=== PATIENT | male | born 1975 | race Caucasian/White ===

== ENCOUNTER 2020-09-05 18:50 | Inpatient (IN) | payer OTHER ==
[~2020-09-05] VITALS: Ht 193 cm; Wt 111.4 kg
[2020-09-05 20:24] LABS: BASOPHILS ABSOLUTE AUTO 0.04 K/mm3 (0.00-0.23); BASOPHILS PERCENT AUTO 1 % (0-2); EOSINOPHILS ABSOLUTE AUTO 0.15 K/mm3 (0.00-0.68); EOSINOPHILS PERCENT AUTO 2 % (0-6); Hematocrit 54.7 % (37.0-53.0); Hemoglobin 17.8 g/dL (13.5-17.5); IMMATURE GRAN ABSOLUTE AUTO 0.02 K/mm3 (0.00-0.10); IMMATURE GRAN PERCENT AUTO 0 % (0-1); LYMPHOCYTES ABSOLUTE AUTO 5.11 K/mm3 (0.84-5.20); LYMPHOCYTES PERCENT AUTO 62 % (21-46); MONOCYTES ABSOLUTE AUTO 0.77 K/mm3 (0.16-1.47); MONOCYTES PERCENT AUTO 9 % (4-13); Mean Corpuscular HGB 28.8 pg (26.0-34.0); Mean Corpuscular HGB Conc 32.5 g/dL (31.5-36.5); Mean Corpuscular Volume 89 fL (80-100); Mean Platelet Volume 10.1 fL (9.1-12.4); NEUTROPHILS ABSOLUTE AUTO 2.13 K/mm3 (1.96-9.15); NEUTROPHILS PERCENT AUTO 26 % (41-73); Platelet Count 279 K/mm3 (150-400); RDW Coefficient Variation 12.4 % (11.7-14.2); RDW Standard Deviation 40.4 fL (35.1-46.3); Red Blood Cell Count 6.17 M/mm3 (4.30-5.90); White Blood Cell Count 8.22 K/mm3 (4.00-11.30)
[2020-09-05 20:38] LABS: PCO2 Arterial 39.4 mmHg (35-45); PO2 Arterial 61.5 mmHg (80-100); pH Blood Arterial 7.31 (7.35-7.45)
[2020-09-05 20:44] LABS: Alanine Aminotransfer (ALT/SGP 41 U/L (12-78); Albumin/Globulin Ratio 1.4 (0.8-1.8); Alk Phos 64 U/L (50-136); Anion Gap 12 mmol/L (6-16); Aspartate Aminotrans (AST/SGOT 30 U/L (12-37); Bilirubin, Total 0.6 mg/dL (0.1-1.0); Blood Urea Nitrogen 14 mg/dL (8-24); Bun/Creatinine Ratio 10.6 (12.0-20.0); CO2, Blood 21 mmol/L (21-32); Calcium, Blood 9.1 mg/dL (8.5-10.1); Chloride, Blood 106 mmol/L (98-108); Creatinine, Blood 1.32 mg/dL (0.60-1.20); Globulin, Blood 2.9 g/dL (2.2-4.0); Glomerular Filtration Rate >60 (60-); Glucose, Blood 143 mg/dL (70-99); Sodium, Blood 139 mmol/L (136-145); Total Protein, Blood 6.9 g/dL (6.4-8.2)
--- NOTE | 2020-09-05 22:00 | NUR ---
PT TO ICU 7 VIA [facility] WITH ED RN AND RT. PT ON VENTILATOR SET TO AC 16/550 PEEP 5 FIO2 35% WITH O2 SATURATIONS> 90%. MONITOR SHOWS SINUS RHYTHM WITH HR 70'S-80'S, BP STABLE WITH EPI GTT @ 2, PROPOFOL INFUSING FOR SEDATION, SEE FLOWSHEET FOR RATES AND TITRATIONS. OG PLACED, VERIFIED BY AUSCULTATION, NOTIFIED ANN MARIE GATICA, NO XRAY AT THIS TIME, ORDERS TO PLACE OG TO LOW INTERMITTENT SUCTION, INITIAL OUTPUT OF GREEN BILE, THEN RED TINGED OUTPUT. ANN MARIE GATICA CERTIFIED SHORTHAND REPORTER NOTIFIED, BEDSIDE GUAIAC POSITIVE, WILL RECHECK HGB IN THE AM. PADGETT IN PLACE DRAINING CLEAR YELLOW URINE. DURING INITIAL ASSESSMENT, PT BECAME AGITATED, PULLING AT RESTRAINTS, NOT REDIRECTABLE, NEW ORDER FOR 2MG VERSED Q2H PRN FOR AGITATION.
[2020-09-06 03:49] LABS: BASOPHILS ABSOLUTE AUTO 0.04 K/mm3 (0.00-0.23); BASOPHILS PERCENT AUTO 0 % (0-2); EOSINOPHILS PERCENT AUTO 0 % (0-6); Hematocrit 48.5 % (37.0-53.0); IMMATURE GRAN ABSOLUTE AUTO 0.07 K/mm3 (0.00-0.10); IMMATURE GRAN PERCENT AUTO 1 % (0-1); LYMPHOCYTES ABSOLUTE AUTO 0.98 K/mm3 (0.84-5.20); LYMPHOCYTES PERCENT AUTO 7 % (21-46); MONOCYTES ABSOLUTE AUTO 0.26 K/mm3 (0.16-1.47); MONOCYTES PERCENT AUTO 2 % (4-13); Mean Corpuscular HGB 29.3 pg (26.0-34.0); Mean Corpuscular Volume 89 fL (80-100); Mean Platelet Volume 9.6 fL (9.1-12.4); NEUTROPHILS ABSOLUTE AUTO 12.41 K/mm3 (1.96-9.15); NEUTROPHILS PERCENT AUTO 90 % (41-73); Platelet Count 229 K/mm3 (150-400); RDW Coefficient Variation 12.9 % (11.7-14.2); RDW Standard Deviation 41.5 fL (35.1-46.3); Red Blood Cell Count 5.46 M/mm3 (4.30-5.90); White Blood Cell Count 13.76 K/mm3 (4.00-11.30)
[2020-09-06 04:09] LABS: Anion Gap 13 mmol/L (6-16); Blood Urea Nitrogen 17 mg/dL (8-24); Bun/Creatinine Ratio 13.1 (12.0-20.0); CO2, Blood 19 mmol/L (21-32); Calcium, Blood 7.8 mg/dL (8.5-10.1); Chloride, Blood 106 mmol/L (98-108); Glomerular Filtration Rate >60 (60-); Glucose, Blood 303 mg/dL (70-99); Potassium, Blood 4.4 mmol/L (3.5-5.5); Sodium, Blood 138 mmol/L (136-145)
--- NOTE | 2020-09-06 06:31 | NUR ---
SHIFT SUMMARY PT REMAINS INTUBATED AND SEDATED, PT WAKING UP AND FOLLOWING COMMANDS, REQUIRING FREQUENT TITRATION WITH PROPOFOL, PRN VERSED AND FENTANYL FOR ADQUATE SEDATION AND COMFORT. PT DOES REPORT PAIN TO HIS THROAT AND COMMUNICATES DESIRE TO BE EXTUBATED. EDUCATED PT ON SWELLING R/T ANAPHYLAXIS AND NEED FOR CONTINUED INTUBATION, ASSURED PT HE WOULD BE RE-EVALUATED BY PROVIDER TODAY. EPI GTT INFUSING AT 3mcg/min TO MAINTAIN MAPS> 65, INFUSING TO LFA IV, BLOOD RETURN WITH EACH REASSESSMENT OF IV. OG REMAINS IN PLACE, VERY LITTLE OUTPUT. PADGETT REMAINS IN PLACE DRAINING CLEAR YELLOW URINE. SKIN IS MUCH IMPROVED, MINIMAL HIVES NOTED TO LEFT FOREARM ONLY.
--- NOTE | 2020-09-06 07:10 | NUR ---
PT RECEIVED FROM MAIKOL REILLY. PT ON VENTILATOR, AC 16/550/5/35%. EPINEPHRINE GTT GOING IN LEFT FOREARM, PROPOFOL AND MAINTENANCE FLUIDS GOING IN LEFT A/C, SITES BOTH GOOD, NO EVIDENCE OF INFILTRATION. PT'S SKIN WITHOUT ANY FURTHER EVIDENCE OF HIVES,VERIFIED WITH MAIKOL REILLY DURING REPORT. PT WITH GOOD URINE OUTPUT VIA PADGETT, CLEAR YELLOW. WRISTS RESTRAINED FOR PATIENT SAFETY.
--- NOTE | 2020-09-06 09:00 | NUR ---
IN TO SEE PATIENT, LEAK TEST PERFORMED, NO LEAK, NO CHANGE IN TIDAL VOLUMES. PICC LINE HAS BEEN PLACED BY MAIKOL YEE ALL LINES MOVED TO RIGHT UPPER ARM. BOTH LOCKS REMAIN IN LEFT ARM. BLOOD PRESSURE CONTINUES TO BE LABILE, TITRATING EPI NEEDED. CURRENTLY AT 5, WILL CONTINUE TO TITRATE.
--- NOTE | 2020-09-06 12:00 | NUR ---
PT REMAINS INTUBATED AND SEDATED. PT INTERMITTENTLY AGITATED. HE SITS UP IN THE BED AND GRIMACES WITH ORAL CARE AND POSITION CHANGES.PROPOFOL DRIP CONTINUES @ 35 MCG/KG/MIN. MED WITH VERSED AND FENTANYL SEDATION ADJUNCTS-SEE EMAR. EPI DRIP CONTINUES @ 4 MCG AND MAP TRENDING 70'S.OGT HAS RESIDUAL BROWN, RED DRAINAGE ON OGT, BUT NO DRAINAGE TO SUCTION CANNISTER TO LIS.
--- NOTE | 2020-09-06 17:25 | NUR ---
DRAIN SPONGE PLACED AROUND THE TRACH SITE, PT STATES FEELS FINE.
--- NOTE | 2020-09-06 17:48 | NUR ---
ASHLEY HAS BEEN CONTINUING ON THE VENTILATOR AC 16/550/5/35%. HE WAS MORE AWARE WHEN HIS WAS IN TO VISIT, WRITING NOTES AND TRYING TO "COMMUNICATE". HE IS MADE AWARE THAT IT IS NOT QUITE TIME TO REMOVE THE VENT HIS SWELLING IN HIS THROAT ISN'T GONE YET. HE IS MEDICATED WITH THE FENTANYL, VERSED, AND BENADRYL ADJUNCTS TO HIS PROPOFOL GTT. HE DID GET MOVED UP TO 45 MCG/KG/MIN AFTER TURN AND WHILE "VISITING" WITH . HE CONTINUES ON EPI GTT AT 4 MCG/MIN. HE CONTINUES WITH NO EVIDENCE OF HIVES, OG TUBE CONT ON LIS W/ NO RETURN TO THE BUCKET, JUST NOTED IN LINE OF THE BROWN/RED RETURN. PADGETT CONTINUES TO DRAIN CLEAR YELLOW TO GRAVITY. WILL REPORT TO NEXT SHIFT WHEN ABLE.
--- NOTE | 2020-09-06 21:33 | NUR ---
ASSUMPTION OF CARE PT INTUBATED AND SEDATED, AROUSES TO VERBAL STIMULI AND FOLLOWS DIRECTIONS, NODS HEAD "YES" TO PAIN, GRIMACES AND MILD AGITATION NOTED WITH NURSING CARE. PROPOFOL INFUSING FOR SEDATION (SEE FLOWSHEET FOR RATES AND TITRATIONS), VERSED AND FENTANYL PRN AVAILABLE FOR PAIN/AGITATION, SEE MAR FOR ADMINISTRATIONS. VENT SET TO AC 16/550 PEEP 5 FIO2 35%, MONITOR SHOWS SINUS RHYTHM WITH HR 80'S, EPI GTT INFUSING TO MAINTAIN MAPS> 65. NO REDNESS OR HIVES NOTED. OG IN PLACE TO LOW INTERMITTENT SUCTION, LITTLE OUTPUT NOTED, BOWEL TONES HYPOACTIVE. PADGETT IN PLACE DRAINING YELLOW URINE.
[2020-09-07 04:00] LABS: BASOPHILS ABSOLUTE AUTO 0.03 K/mm3 (0.00-0.23); BASOPHILS PERCENT AUTO 0 % (0-2); EOSINOPHILS PERCENT AUTO 0 % (0-6); Hematocrit 40.6 % (37.0-53.0); Hemoglobin 13.8 g/dL (13.5-17.5); IMMATURE GRAN ABSOLUTE AUTO 0.07 K/mm3 (0.00-0.10); IMMATURE GRAN PERCENT AUTO 0 % (0-1); LYMPHOCYTES ABSOLUTE AUTO 1.26 K/mm3 (0.84-5.20); LYMPHOCYTES PERCENT AUTO 8 % (21-46); MONOCYTES ABSOLUTE AUTO 1.27 K/mm3 (0.16-1.47); MONOCYTES PERCENT AUTO 8 % (4-13); Mean Corpuscular HGB 29.4 pg (26.0-34.0); Mean Corpuscular Volume 86 fL (80-100); Mean Platelet Volume 9.7 fL (9.1-12.4); NEUTROPHILS ABSOLUTE AUTO 13.33 K/mm3 (1.96-9.15); NEUTROPHILS PERCENT AUTO 84 % (41-73); Platelet Count 199 K/mm3 (150-400); RDW Coefficient Variation 12.9 % (11.7-14.2); RDW Standard Deviation 40.5 fL (35.1-46.3); White Blood Cell Count 15.96 K/mm3 (4.00-11.30)
[2020-09-07 04:22] LABS: Albumin, Blood 3.2 g/dL (3.4-5.0); Anion Gap 6 mmol/L (6-16); Blood Urea Nitrogen 17 mg/dL (8-24); Bun/Creatinine Ratio 12.1 (12.0-20.0); CO2, Blood 24 mmol/L (21-32); Calcium, Blood 8.9 mg/dL (8.5-10.1); Chloride, Blood 111 mmol/L (98-108); Glomerular Filtration Rate 58 (60-); Glucose, Blood 103 mg/dL (70-99); Phosphorus, Blood 1.3 mg/dL (2.5-4.9); Sodium, Blood 141 mmol/L (136-145)
--- NOTE | 2020-09-07 06:37 | NUR ---
SHIFT SUMMARY PT REMAINS INTUBATED AND SEDATED, AROUSES TO VERBAL STIMULI, FOLLOWS DIRECTIONS. VENT SET TO AC 16/550/5/30%, PT MEDICATED WITH PRN FENTANYL AND VERSED FOR INTERMITTENT PAIN AND AGITATION. MONITOR SHOWS SINUS RHYTHM WITH HR 70'S-80'S, BP STABLE, EPI GTT OF SINCE 0100. OG IN PLACE, NO OUTPUT THIS SHIFT. PADGETT IN PLACE WITH GOOD OUTPUT. CHEM BG'S TRENDING DOWN, NEW ORDER FOR HYPOGLYCEMIA PROTOCOL. AM LABS SHOWED LOW PHOS, SEE ORDER FOR 30mmol K-PHOS.
--- NOTE | 2020-09-07 07:48 | NUR ---
PT REMAINS INTUBATED, SEDATED, AND RESTRAINED. PT OPENS EYES TO VERBAL. PT APPEARS AGITATED WITH ORAL CARE AND REPOSITIONING. PROPOFOL DRIP @ 50 MCG/KG/MIN. MED WITH FENTANYL 100 MCG IVP X 1 SEDATION ADJUNCT-SEE EMAR. PT IS AFEBRILE. ECG SHOWS SR WITH RATE 60-70'S. MAP TRENDING IN THE 70'S-EPI DRIP REMAINS OFF. LUNGS CLEAR, BUT DIMINISHED IN THE BASES. SATS>90% ON FIO2 30% ETT TO VENT: AC 16, TV 550, PEEP 5, FIO2 30%. ETT SUCTION PRODUCTIVE OF A MODERATE AMOUNT OF THICK, GREEN SPUTUM. WBC COUNT ELEVATED THIS AM. CUFF LEAK TEST WITH LEAK AUSCULTATED EARLY THIS AM PER RT, NOEL, OGT TO LIS WITH SMALL AMOUNT OF BILIOUS DRAINAGE. PADGETT WITH ADEQUATE AMOUNT OF CLEAR, YELLOW URINE TO UROMETER.
--- NOTE | 2020-09-07 09:34 | NUR ---
PROPOFOL DRIP ON STANDYBY FOR SEDATION VACATION AND WEANING TRIAL-PER DR. JEAN.
--- NOTE | 2020-09-07 09:45 | NUR ---
PT AWAKE AND ALERT. FOLLOWING COMMANDS. DR. JEAN AT BEDSIDE AND VENT ON SPONTANEOUS. PT MAINTAINING SATS>90% PT SPOUSE HEATHER CONTACTED AND MADE AWARE THAT THE SEDATION VACATION AND WEANING TRIAL HAVE COMMENSED.
--- NOTE | 2020-09-07 10:00 | NUR ---
PT AGITATED. COUGHING AND PULLING ON RESTRAINTS. ABLE TO CONSOLE PT AND OVERALL TOLERATING WEANING TRIAL WELL.
--- NOTE | 2020-09-07 10:25 | NUR ---
PT SUCCUESSFULLY WEANED AND EXTUBATED. VOICE IS HOARSE, BUT PT ABLE TO COMMUNICATE NEEDS WELL. RESTRAINTS REMOVED. PT SPOUSE HEATHER CONTACTED AND UPDATED.
--- NOTE | 2020-09-07 11:23 | NUR ---
PT RESTING QUIETLY WHEN NOT DISTURBED. HE AWAKENS TO VOICE AND IS A&OX4. HE DENIES PAIN OR SOB. PT AWARE THAT HE MUST REMAIN NPO X MINIMUM OF 2 HOURS POST EXTUBATION. PT VERBALIZES BOTH UNDERSTANDING AND AGREEMENT WITH NPO STATUS. PT DENIES COMPLAINTS. SATS>90% ON 2 LITERS NASAL CANULA. PT HAS CALL LIGHT IN REACH AND WILL CALL FOR ASSISTANCE PRN. ATTEMPTED TO CONTACT PT SPOUSE TO UPDATE REGARDING EXTUBATION. MESSAGE LEFT FOR PT SPOUSE HEATHER.
--- NOTE | 2020-09-07 11:39 | NUR ---
PT REPORTED THAT HE HAD "HIVES AGAIN." NOTED SEVERAL HIVES TO LEFT WRIST AND ONE TO LEFT ANKLE. MED WITH BENADRYL 25 MG IVP X1. PT HAS MOIST, NONPRODUCTIVE COUGH. PT INSTRUCTED ON USE OF YANKEUR SUCTION. PT ABLE TO VERBALIZE AND DEMONSTRATE UNDERSTANDING.
--- NOTE | 2020-09-07 14:21 | NUR ---
PT SPOUSE IN FOR VISIT. UPDATED TO CURRENT STATUS AND PLAN OF CARE. PT STATES THAT THE HIVES AND ITCHING THAT HE HAD EARLIER HAS RESOLVED COMPLETELY.
--- NOTE | 2020-09-07 15:38 | NUR ---
PT REMAINS A&OX4. DENIES PAIN OR SOB. LUNGS SLIGHTLY COARSE, BUT CLEARED SOMEWHAT WITH COUGH. COUGH PRODUCTIVE OF A LARGE AMOUNT OF THICK, GREEN SPUTUM. ENCOURAGED C&DB. SATS>90% ON RA. PT FACE, CHEST, AND TORSO RED. SKIN WAS CLEAR ON LAST ASSESSMENT. MED WITH BENADRYL 25 MG IVPX1. PT OFFERED A BATH AND TO GET UP TO THE RECLINER, BUT PT REFUSING AT THIS TIME.
--- NOTE | 2020-09-07 18:22 | NUR ---
PT REMAINS A&0X4. NO NOTED SOB. SATS>90% ON RA. OCCASIONAL COUGH-PRODUCTIVE OF LARGE AMOUNT OF THICK, GREEN SPUTUM. PT TOLERATING REGULAR DIET WELL. HE ATE ONLY BITES OF DINNER TRAY PROVIDED. HE IS ON A KETO DIET AT HOME. HIS DID BRING HIM IN A MEDITERANEAN SALAD FROM THE [place]. HE ATE APROX. 50% OF THE SALAD. NO NOTED HIVES AT THIS TIME-PT WILL CALL IF ITCHING, HIVES, OR SOB.
--- NOTE | 2020-09-07 20:35 | NUR ---
INITIAL ASSESSMENT: PATIENT A/OX3. DENIES PAIN. DENIES DIFFICULTY BREATHING. DENIES THROAT SWELLING, ITCHING, HIVES, AND RED SKIN. CONTINUOUS PULSE OXIMETRY, SPO2 IN 90'S ON ROOM AIR. REPORTS COUGHING UP MOD AMT THICK GREEN SPUTUM. STATES HE ASPIRATED ON EMESIS IN ED. STATES HE DOES NOT HAVE TROUBLE CLEARING SPUTUM BUT YAUNKER IS AT BEDSIDE IF NEEDED. SINUS RHYTHM ON TELE. DENIES CHEST PAIN. MED STATUS WITH TELE. IS ABLE TO REPOSITION HIMSELF IN BED. STATES THAT HE WAS ABLE TO TOLERATE DINNER. PADGETT DRAINING, STATES HE WOULD NOT LIKE IT REMOVED AT THIS TIME, "MAYBE IN THE MORNING". HE LIVES WITH HIS HEATHER AND THEY HAVE 5 CHILDREN THAT LIVE WITH THEM, NORMALLY INDEPENDENT. DISCUSSED POC FOR SHIFT. WILL CONTINUE TO MONITOR.
--- NOTE | 2020-09-08 00:15 | NUR ---
UPDATE: PATIENT CONTINUES TO DENY PAIN. DENIES DIFFICULTY BREATHING. SPO2 IN 90'S ON RA. DENIES HIVES, ITCHING, AND RED SKIN. HE CAN REPOSITION HIMSELF IN BED. BED ALARM ON. CALL LIGHT IN REACH.
[2020-09-08 04:45] LABS: BASOPHILS ABSOLUTE AUTO 0.01 K/mm3 (0.00-0.23); BASOPHILS PERCENT AUTO 0 % (0-2); EOSINOPHILS ABSOLUTE AUTO 0.01 K/mm3 (0.00-0.68); EOSINOPHILS PERCENT AUTO 0 % (0-6); Hematocrit 41.8 % (37.0-53.0); Hemoglobin 13.4 g/dL (13.5-17.5); IMMATURE GRAN ABSOLUTE AUTO 0.04 K/mm3 (0.00-0.10); IMMATURE GRAN PERCENT AUTO 0 % (0-1); LYMPHOCYTES ABSOLUTE AUTO 2.02 K/mm3 (0.84-5.20); LYMPHOCYTES PERCENT AUTO 19 % (21-46); MONOCYTES PERCENT AUTO 7 % (4-13); Mean Corpuscular HGB 28.9 pg (26.0-34.0); Mean Corpuscular HGB Conc 32.1 g/dL (31.5-36.5); Mean Corpuscular Volume 90 fL (80-100); Mean Platelet Volume 9.9 fL (9.1-12.4); NEUTROPHILS ABSOLUTE AUTO 7.97 K/mm3 (1.96-9.15); NEUTROPHILS PERCENT AUTO 74 % (41-73); Platelet Count 145 K/mm3 (150-400); RDW Coefficient Variation 13.6 % (11.7-14.2); RDW Standard Deviation 44.9 fL (35.1-46.3); Red Blood Cell Count 4.63 M/mm3 (4.30-5.90); White Blood Cell Count 10.75 K/mm3 (4.00-11.30)
[2020-09-08 05:07] LABS: Alanine Aminotransfer (ALT/SGP 24 U/L (12-78); Albumin, Blood 3.2 g/dL (3.4-5.0); Albumin/Globulin Ratio 1.1 (0.8-1.8); Alk Phos 46 U/L (50-136); Anion Gap 4 mmol/L (6-16); Aspartate Aminotrans (AST/SGOT 12 U/L (12-37); Bilirubin, Total 0.7 mg/dL (0.1-1.0); Blood Urea Nitrogen 21 mg/dL (8-24); Bun/Creatinine Ratio 15.7 (12.0-20.0); CO2, Blood 27 mmol/L (21-32); Calcium, Blood 9.1 mg/dL (8.5-10.1); Chloride, Blood 115 mmol/L (98-108); Creatinine, Blood 1.34 mg/dL (0.60-1.20); Globulin, Blood 2.9 g/dL (2.2-4.0); Glomerular Filtration Rate >60 (60-); Glucose, Blood 97 mg/dL (70-99); Magnesium, Blood 2.2 mg/dL (1.6-2.4); Phosphorus, Blood 3.6 mg/dL (2.5-4.9); Potassium, Blood 4.7 mmol/L (3.5-5.5); Sodium, Blood 146 mmol/L (136-145); Total Protein, Blood 6.1 g/dL (6.4-8.2)
--- NOTE | 2020-09-08 07:00 | NUR ---
DR. JEAN AT BEDSIDE. DISCUSSED POC. AWARE SODIUM 146. REVIEWED CHEST XRAY, STATES IT IS UNREMARKABLE. PT HAS BEEN EATING SHRIMP AND BRAZIL NUTS "ALL HIS LIFE" AND DEVELOPED THIS NEW ALLERGY.
--- NOTE | 2020-09-08 07:15 | NUR ---
ASSUMED CARE- PT RESTING IN BED. VSS, A/O X4, VERY PLEASANT AND THANKFUL FOR CARE. NO C/CO PAIN OR ANY OTHER ISSUES AT THIS TIME
--- NOTE | 2020-09-08 07:27 | NUR ---
SHIFT SUMMARY: PATIENT A/OX3. HAS DENIED PAIN THROUGHOUT THE SHIFT. HAS DENIED DIFFICULTY BREATHING, SWELLING, HIVES, AND RED SKIN THIS SHIFT. NO BENADRYL GIVEN. ABLE TO REPOSITION HIMSELF IN BED. PADGETT D/C'D, PATIENT HAS NOT VOIDED POST PADGETT REMOVAL. POSSIBLE DC HOME TODAY, WILL NEED F/U WITH DELIVERY ROOM SUPERVISOR AND EPI PEN PRESCRIPTION. REPORT GIVEN TO ONCOMING RN.
--- NOTE | 2020-09-08 17:08 | NUR ---
PT AOX4 AND COOPERATIVE OF CARE. PT ARRIVED TO ROOM AT 1200 AND HAS BEEN DOING WELL. PT DENIES PAIN AND HAS BEEN A ONE PERSON TRANSFER. PT CAN USE CALL LIGHT APPROPRIATELY AND HAS IT WITHIN REACH. PT WATCHING TV AND TALKING WITH HIS . PT IS STILL A STANBY ASSIST. NO DISTRESS NOTED WILL CONTINUE TO MONITOR.
--- NOTE | 2020-09-08 19:00 | NUR ---
ASSUMED CARE RECEIVED REPORT FROM MAIKOL CASTILLO. PT RESTING COMFORTABLY, IN NO ACUTE DISTRESS. DENIES NEEDS AT THIS TIME. CALL LIGHT, POSSESSIONS IN REACH, BED IN LOW POSITION. CONTINUE TO MONITOR.
--- NOTE | 2020-09-08 22:50 | NUR ---
SPOKE TO DR. FELIX REGARDING PT'S CONTINOUS HTN, ORDERS RECEIVED, CONTINUE TO MONITOR.
--- NOTE | 2020-09-09 03:21 | NUR ---
THIS RN NOTIFIED DR. PEREZ OF PT'S CONTINUED HTN, ORDERS RECEIVED FOR ONE TIME DOSE OF HYDRALAZINE. CONTINUE TO MONITOR.
[2020-09-09 04:51] LABS: BASOPHILS ABSOLUTE AUTO 0.01 K/mm3 (0.00-0.23); BASOPHILS PERCENT AUTO 0 % (0-2); EOSINOPHILS PERCENT AUTO 0 % (0-6); Hematocrit 44.5 % (37.0-53.0); Hemoglobin 14.6 g/dL (13.5-17.5); IMMATURE GRAN ABSOLUTE AUTO 0.05 K/mm3 (0.00-0.10); IMMATURE GRAN PERCENT AUTO 1 % (0-1); LYMPHOCYTES ABSOLUTE AUTO 1.55 K/mm3 (0.84-5.20); LYMPHOCYTES PERCENT AUTO 15 % (21-46); MONOCYTES ABSOLUTE AUTO 0.83 K/mm3 (0.16-1.47); MONOCYTES PERCENT AUTO 8 % (4-13); Mean Corpuscular HGB 29.7 pg (26.0-34.0); Mean Corpuscular HGB Conc 32.8 g/dL (31.5-36.5); Mean Corpuscular Volume 90 fL (80-100); Mean Platelet Volume 10.1 fL (9.1-12.4); NEUTROPHILS ABSOLUTE AUTO 8.27 K/mm3 (1.96-9.15); NEUTROPHILS PERCENT AUTO 77 % (41-73); Platelet Count 168 K/mm3 (150-400); RDW Coefficient Variation 12.9 % (11.7-14.2); RDW Standard Deviation 42.7 fL (35.1-46.3); Red Blood Cell Count 4.92 M/mm3 (4.30-5.90); White Blood Cell Count 10.71 K/mm3 (4.00-11.30)
[2020-09-09 05:10] LABS: Anion Gap 6 mmol/L (6-16); Blood Urea Nitrogen 20 mg/dL (8-24); Bun/Creatinine Ratio 17.7 (12.0-20.0); CO2, Blood 27 mmol/L (21-32); Chloride, Blood 109 mmol/L (98-108); Creatinine, Blood 1.13 mg/dL (0.60-1.20); Glomerular Filtration Rate >60 (60-); Glucose, Blood 123 mg/dL (70-99); Potassium, Blood 4.2 mmol/L (3.5-5.5); Sodium, Blood 142 mmol/L (136-145)
--- NOTE | 2020-09-09 05:50 | NUR ---
NOTIFIED DR. PEREZ OF PT'S ELEVATED MANUAL BP. ORDERS RECEIVED. CONTINUE TO MONITOR.
--- NOTE | 2020-09-09 06:20 | NUR ---
SHIFT SUMMARY THIS RN NOTIFIED OF PT'S HTN, ORDERS RECEIVED FOR AN ADDITIONAL DOSE OF HYDRALAZINE. PT HAS NOT SLEPT MUCH T/O NIGHT, REPORTS HE HAS A LOT ON HIS MIND. NO CARDIAC EVENTS OVERNIGHT, OTHER VS WNL. PT SBA TO BATHROOM, CALLS APPROPRIATELY. DENIES PAIN OR NEEDS AT THIS TIME. CALL LIGHT, POSSESSIONS IN REACH, CONTINUE TO MONITOR, REPORT OFF TO DAY RN.
--- NOTE | 2020-09-09 09:51 | NUR ---
PT STARTED SHIFT WITH HIGH BP OF 181/122. EARLY CHILDHOOD EDUCATOR AIDE HAD TRIED TO GET BP DOWN WITH HYDRALIZINE. THIS WAS NOT EFFECTIVE AND DR SHRESTHA WAS NOTIFIED OF PT'S CURRENT VITALS. DR SHRESTHA ADDED NORVASC 5MG ONE DOSE AND THIS WAS EFFECTIVE WITH BP DOWN TO 152/101 AN HOUR AFTER ADMINISTRATION. WILL CONTINUE TO MONITOR.
[2020-09-09] MEDS ORDERED: FAMO20 PO (12:10)
[2020-09-09] MEDS ORDERED: LEVO750 PO (12:11)
[2020-09-09] MEDS ORDERED: AMLO5 PO (12:12)
[2020-09-09] MEDS ORDERED: PRED20 PO (12:12)
[2020-09-09] MEDS ORDERED: BENADRYL25 MG PO (12:13)
[2020-09-09] MEDS ORDERED: EPIPEN0.3 MG/0.3 IM (12:13)
--- NOTE | 2020-09-09 13:50 | NUR ---
PT DISCHARGED HOME WITH TO TRANSPORT. ALL PAPERWORK REVIEWED AND EDUCATIONAL MATERIAL SENT WITH PT. NO DISTRESS NOTED PT HAS BEEN AMBULATING AND STATES HE IS FEELING BETTER. PT HAD CONTROLLED BP AND MEDS WERE SET HOME TO ADDRESS BP INCREASE EALIER. PT EDUCATED ON MONITORING BP PRIOR TO BP MEDIATION. PT WAS ALSO EDUCATED ON KEEPING HIS MEDICATIONS FOR ANAPHYLAXIS REACTION. PT INSTRUCTED ON EPINEPHRINE INJECTION WELL WITH HIS . BOTH VERBALIZED UNDERSTANDING. MEDICAITONS FAXED TO PHARMACY. NO DISTRESS NOTED AND ALL PERSONAL BELONGINGS WERE COLLECTED AND TAKEN WITH PT. PT ESCORTED OUT VIA WHEEL CHAIR.
== END 2020-09-09 13:25 | disposition home or self-care (01) | DRG 915 ==
LOC: ER 18:50 → ICUW 20:56 → ICUE 20:56 → ICUW 21:03 → ICUE 21:07 → ICUW 21:07 → ICUE 09-06 11:27 → MEDS 09-08 12:03
PROVIDERS: Internal Medicine; Internal Medicine Critical Care Medicine; Nurse Practitioner Acute Care; ADMIT Internal Medicine
PROC: 0BH18EZ Insertion of Endotracheal Airway into Trachea, Via Natural or Artificial Opening Endoscopic (ICD-10-PCS; 2020-09-05)
PROC: 5A1945Z Respiratory Ventilation, 24-96 Consecutive Hours (ICD-10-PCS; 2020-09-05)
PROC: 02HV33Z Insertion of Infusion Device into Superior Vena Cava, Percutaneous Approach (ICD-10-PCS; principal; 2020-09-06)
PROC: 3E043XZ Introduction of Vasopressor into Central Vein, Percutaneous Approach (ICD-10-PCS; 2020-09-06)
DX: T78.05XA Anaphylactic reaction due to tree nuts and seeds, initial encounter (principal); J96.01 Acute respiratory failure with hypoxia; E87.2 Acidosis; Z91.013 Allergy to seafood; R73.9 Hyperglycemia, unspecified; T38.0X5A Adverse effect of glucocorticoids and synthetic analogues, initial encounter; Y92.230 Patient room in hospital as the place of occurrence of the external cause; D72.829 Elevated white blood cell count, unspecified; E83.39 Other disorders of phosphorus metabolism; J20.2 Acute bronchitis due to streptococcus; I10 Essential (primary) hypertension
CPT/HCPCS: 31500; 31720; 36415; 36569; 36600; 51702; 71045; 80048; 80053; 80069; 82803; 82947; 83735; 84100; 85025; 87070; 87077; 87185; 87186; 87205; 94002; 94003; 94640; 96361-59; 96372-59; 96374-59; 96375-59; 96376; 99285-25; A9270; C1751; J0171; J0282; J0330; J0610; J1200; J1650; J1815; J2250; J2405; J2704; J2930; J3010; J7030; J7060; J7120; J7512